=== PATIENT | female | born 1995 | race Caucasian/White ===

== ENCOUNTER 2022-06-08 11:07 | Emergency (ER) | payer BC, MEDICAID, SELFPAY ==
[2022-06-08 11:16] VITALS: BP 127/81; PULSE 103; RESP 16; TEMP 36.6; O2SAT 98; BMI 16.6
--- NOTE | 2022-06-08 11:23 | ED.NAVMDI ---
HPI - Nausea/Vomiting/Diarrhea General Time Seen by Provider: 11:23 Date Seen: 06/08/22 Chief complaint: Nausea/Vomiting Stated complaint: Vomiting Time Seen by Provider: 06/08/22 11:09 Source: patient and RN notes reviewed Mode of arrival: ambulatory Limitations: no limitations History of Present Illness HPI Narrative: Reinier is a very pleasant 26-year-old female previously healthy who comes to the emergency room for evaluation regarding abdominal discomfort, vomiting and 65 lb weight loss. Patient notes that for the past 2 years she is experiencing nausea stomach discomfort and vomiting that seems to be worsening over time. She notes the 65 lb weight loss in the past 18 months. This current episode a started a few days ago with nausea and abdominal discomfort with eating. The abdominal discomfort was slightly delayed. She notes no change in her stools and has not had any blood or diarrhea in her stools. She also denies constipation. She has not had any fever or chills. As a child she had frequent reflux and spontaneous vomiting and ?doctor? frequently according to her mom. She still retains a gallbladder. Patient denies any fever or chills. She states that she was sweaty somewhat this morning otherwise reports no night sweats. She drinks 2 energy drinks a day but denies any rapid heart rate or palpitations. She denies chest pain sore throat runny nose. Patient sees Dr. Viet mejia at the [facility]. Blood work was done a few weeks ago and was normal. No referral to GI at this point. Associated nausea: Yes Related Data Home Medications Medication Instructions Recorded Confirmed cetirizine 10 mg tablet (24Hour 10 mg PO DAILY PRN 06/08/22 06/08/22 Allergy) fluticasone 100 mcg-salmeterol 50 1 inh inhalation DAILY 06/08/22 06/08/22 mcg/dose blistr powdr for inhalation (Advair Diskus) fluticasone propionate 50 1 spray intranasal DAILY PRN 06/08/22 06/08/22 mcg/actuation nasal spray,suspension (24 Hour Allergy Relief) Previous Rx's Medication Instructions Recorded ondansetron HCl 4 mg tablet 4 mg PO Q8-12H PRN nausea and 06/08/22 vomiting #20 tabs Allergies Allergy/AdvReac Type Severity Reaction Status Date / Time cephalexin [From Keflex] Allergy Intermediate Verified 02/05/23 11:20 Review of Systems Status of ROS: Reports: 10 or more systems reviewed and unremarkable except as noted in History and below Narrative: Denies a history of eating disorders in childhood Const: Denies: fever, chills or fatigue ENMT: Denies: throat pain, neck pain, throat swelling or difficulty swallowing Cardio: Denies: chest pain, palpitations, swelling of feet/ankles, lightheadedness or shortness of breath with exertion Resp: Denies: shortness of breath, cough or wheezing GI: Reports: abdominal pain and nausea; Denies: difficulty swallowing Musculo: Denies: neck pain Integ/Breast: Denies: rash Neuro: Denies: headache, numbness in extremities or weakness in extremities Endo: Denies: fatigue Allergy/Immuno: Denies: throat swelling or wheezing PFSH PFS Social History Smoking Status: Never smoker Do you use any of these nicotine containing products: Vaping Products How often do you have a drink containing alcohol: 2-4 times a month AUDIT-C Alcohol total score: 2 Non-prescribed substance use: denies use Exam Narrative: Exam Narrative: Alert and oriented. Nontoxic in appearance. Slim. Eyes are clear. Neck is supple without mass. Heart with regular rate and rhythm. Lungs are clear bilaterally. Abdomen soft. Possibly minimal tenderness right upper quadrant. No rebound tenderness. Lower extremities without edema. Moving all extremities. Const: Vital Signs, click to edit/add: Vital Signs - 24 hr 06/08/22 11:16 06/08/22 13:11 Temperature 97.8 F Pulse Rate [Pulse Oximeter] 103 H 94 Respiratory Rate 16 Blood Pressure [Ri ght Upper Arm] 127/81 110/73 Pulse Oximetry 98 100 Oxygen Delivery Me thod Room Air Room Air Documenting provider has reviewed patient's vital signs: yes Course Course Hospital Course: Differential diagnosis includes but is not limited to ulcerative colitis, Crohn's disease, celiac disease, malabsorption pathology, anxiety, biliary colic, gastritis. Will draw blood and check TSH, celiac pile, magnesium, vitamin-D, CBC, comprehensive panel, CRP, urinalysis. IV will be established and Zofran 4 mg and 1 L of normal saline will be given. Ultimately, I feel that Reinier will likely need referral to GI specialty. Family is aware that I may not be able to fine etiology of this issue in the emergency room today. Reevaluation(s) Reevaluation #1: Patient notes that she is feeling better after IV fluids and Zofran. Labs that have been returned are reassuring with a negative CRP as well as white count. Electrolytes within normal limits including magnesium. Outstanding labs not available at this time include vitamin-D, TSH, celiac. Vital Signs Vital signs: Initial Vital Signs Temperature 97.8 F 06/08/22 11:16 Temperature Source Temporal Artery Scan 06/08/22 11:16 Pulse Rate 103 H 06/08/22 11:16 Respiratory Rate 16 06/08/22 11:16 Blood Pressure 127/81 06/08/22 11:16 Blood Pressure Mean 96 06/08/22 11:16 Blood Pressure Position Sitting 06/08/22 11:16 Pulse Oximetry 98 06/08/22 11:16 Oxygen Delivery Method 06/08/22 11:16 Vital Signs Temperature 97.8 F 06/08/22 11:16 Pulse Rate 103 H 06/08/22 11:16 Respiratory Rate 16 06/08/22 11:16 Blood Pressure 127/81 06/08/22 11:16 Pulse Oximetry 98 06/08/22 11:16 Oxygen Delivery Method 06/08/22 11:16 Temperature 97.8 F 06/08/22 11:16 Pulse Rate 94 06/08/22 13:11 Respiratory Rate 16 06/08/22 11:16 Blood Pressure 110/73 06/08/22 13:11 Pulse Oximetry 100 06/08/22 13:11 Oxygen Delivery Method 06/08/22 13:11 MDM - Nausea/Vomiting/Diarrhea MDM Narrative Medical decision making narrative: 1. Nausea and vomiting-resolved. Patient noted to be feeling much better. Recommend use of omeprazole 20 mg daily until seen by GI specialist. I do ultimately believe that Reinier will need endoscopy with biopsy and specialty consultation with GI specialist in order to ascertain the etiology of her weight loss. Will also provide Zofran 4 mg ODT to be used Q 8-12 hours p.r.n. 20. With no refills. This prescription was sent to [facility] in [place]. 2. Weight loss-see above 3. Disposition- return for worsening symptoms especially fever, blood in stool, persistent vomiting. I will call patient at home with results of the outstanding tests. Lab Data Attestation: I reviewed the patient's lab results. Labs: Lab Results 06/08/22 06/08/22 Range/Units 11:53 11:53 WBC 8.40 (4.50-11.00) K/uL RBC 5.26 H (4.00-5.20) m/uL Hgb 15.4 (12.0-16.0) gm/dL Hct 45.1 (33.0-51.0) % MCV 86 (80-100) fL MCH 29 (26-34) pg MCHC 34 (32-36) gm/dL RDW Coeff of Danny 12.7 (11.5-15.5) % Plt Count 275 (140-440) K/uL Neut % (Auto) 87.6 H (42.0-72.0) % Lymph % (Auto) 8.8 L (20-44) % [place] % (Auto) 2.3 (0.0-11.0) % Eos % (Auto) 0.6 (0.0-7.0) % Baso % (Auto) 0.6 (0.0-3.0) % Neut # (Auto) 7.40 H (1.7-7.0) K/uL Lymph # (Auto) 0.70 L (0.90-2.90) K/uL [place] # (Auto) 0.20 (0.00-0.90) K/UL Eos # (Auto) 0.05 (0.00-0.50) K/uL Baso # (Auto) 0.05 (0.00-0.30) K/uL Sodium 141 (135-149) mmol/L Potassium 4.1 (3.6-5.1) mmol/L Chloride 106 (96-114) mmol/L Carbon Dioxide 23 (20-32) mmol/L BUN 11 (5-24) mg/dL Creatinine 0.8 (0.5-1.5) mg/dL Estimated Creat Clear 83.91 Estimated GFR 105 ml/min Glucose 79 (60-115) mg/dL Calcium 9.7 (8.4-10.6) mg/dL Magnesium 1.9 (1.5-2.6) mg/dL Total Bilirubin 1.0 (0.1-1.5) mg/dL AST 26 (12-35) U/L ALT 21 (4-35) U/L Alkaline Phosphatase 51 (40-150) U/L C-Reactive Protein < 0.5 L (0.5-1.0) mg/dL Total Protein 8.1 (6.0-8.3) g/dL Albumin 5.0 (3.3-5.0) g/dL Amylase 101 H (18-89) U/L Lipase 87 (23-300) U/L Discharge Plan Discharge Clinical Impression: Recent unexplained weight loss, Nausea & vomiting Patient Disposition: Home, Self-Care Condition: Improved Additional Instructions: 1. Recommend starting omeprazole 20 mg daily. This is [id number] medication. 2. Zofran ODT may be used for nausea. Recommend bland foods at this point. 3. Recommend follow-up with GI Consultants. [facility] is very good at evaluation. I do not know how soon you could get that appointment. Alternatively, your doctor Dr. Viet mejia could find a GI document management consultant within the [facility]. 4. Return for worsening symptoms especially fever, blood in stool, worsening pain and as needed. Both of your prescriptions were sent to [facility] in [place]. Prescriptions: New ondansetron HCl 4 mg tablet 4 mg PO Q8-12H PRN (Reason: nausea and vomiting) Qty: 20 0RF No Action fluticasone propionate [24 Hour Allergy Relief] 50 mcg/actuation spray,suspension 1 spray intranasal DAILY PRN Rx Instructions: administer into each nostril fluticasone propion-salmeterol [Advair Diskus] 100-50 mcg/dose blister with device 1 inh inhalation DAILY cetirizine [24Hour Allergy] 10 mg tablet 10 mg PO DAILY PRN Stand Alone Forms: mYwindow Info Instructions
[2022-06-08] MEDS: 0.9 % SODIUM CHLORIDE 1000 ml 1,000 ML IV (12:00)
[2022-06-08] MEDS: ONDANSETRON 2 MG/ML inj 4 MG IVP (12:01)
[2022-06-08 12:06] LABS: Basophils Absolute Auto 0.05 K/uL (0.00-0.30); Basophils Percent Auto 0.6 % (0.0-3.0); Eosinophils Absolute Auto 0.05 K/uL (0.00-0.50); Eosinophils Percent Auto 0.6 % (0.0-7.0); Hematocrit 45.1 % (33.0-51.0); Hemoglobin* 15.4 gm/dL (12.0-16.0); Immature Granulocytes Abs Auto 0.01 K/uL (0.00-0.30); Immature Granulocytes Pct Auto 0.1 %; Lymphocytes Percent Auto 8.8 % (20-44); Mean Corpuscular HGB Conc 34 gm/dL (32-36); Mean Corpuscular Hemoglobin 29 pg (26-34); Mean Corpuscular Volume 86 fL (80-100); Monocytes Percent Auto 2.3 % (0.0-11.0); Neutrophils Percent Auto 87.6 % (42.0-72.0); Platelet Count* 275 K/uL (140-440); RDW Coefficient of Variation % 12.7 % (11.5-15.5); Red Blood Count 5.26 m/uL (4.00-5.20)
[2022-06-08 12:12] LABS: Slide Review Reflex No
[2022-06-08 12:34] LABS: Chloride* 106 mmol/L (96-114)
[2022-06-08 12:35] LABS: Potassium* 4.1 mmol/L (3.6-5.1); Sodium* 141 mmol/L (135-149)
[2022-06-08 12:37] LABS: Amylase* 101 U/L (18-89); Creatinine* 0.8 mg/dL (0.5-1.5); Est. Creatinine Clearance* 83.91; Estimated Glomerular Filt Rate 105 ml/min
[2022-06-08 12:38] LABS: Alanine Aminotransferase* 21 U/L (4-35); Alkaline Phosphatase* 51 U/L (40-150); Aspartate Amino Transferase* 26 U/L (12-35); Blood Urea Nitrogen* 11 mg/dL (5-24); Carbon Dioxide* 23 mmol/L (20-32); Glucose* 79 mg/dL (60-115); Lipase* 87 U/L (23-300); Total Protein* 8.1 g/dL (6.0-8.3)
[2022-06-08 12:39] LABS: Calcium* 9.7 mg/dL (8.4-10.6); Magnesium* 1.9 mg/dL (1.5-2.6)
[2022-06-08 12:43] LABS: C Reactive Protein* < 0.5 mg/dL (0.5-1.0)
[2022-06-08 13:11] VITALS: BP 110/73; PULSE 94; O2SAT 100
[2022-06-08 13:43] LABS: TSH With Reflex to FT4* 0.586 uIU/mL (0.270-4.200)
[2022-06-10 19:46] LABS: Vitamin D, 1,25-Dihydroxy 77.6 pg/mL (19.9-79.3)
== END 2022-06-08 13:27 | disposition home or self-care (01) ==
PROVIDERS: Emergency Provider Family Medicine; PCP Family Medicine
DX: R11.2 Nausea with vomiting, unspecified (principal); R63.4 Abnormal weight loss
CPT/HCPCS: 36415; 80053; 81025; 82150; 82652; 83516; 83690; 83735; 84443; 85025; 86140; 96374; 99283; 99284; J2405; J7030